=== PATIENT | male | born 1955 | race Caucasian/White ===

== ENCOUNTER 2016-07-25 07:58 | Outpatient (CLI) | END 2016-07-25 07:59 | disposition home or self-care (01) | LOC: LAB 07:58 | PROVIDERS: ATTEND Internal Medicine Gastroenterology | DX: B18.2 Chronic viral hepatitis C (principal) | CPT/HCPCS: 36415; 87522 ==

== ENCOUNTER 2016-10-31 07:35 | Outpatient (CLI) ==
[2016-10-31 08:39] LABS: BASOPHILS % (AUTO) 0.1 % (0.0-3.0); HEMATOCRIT 47.7 % (42.0-52.0); HEMOGLOBIN 17.2 g/dl (14.0-18.0); IMMATURE GRANULOCYTE % (AUTO) 0.7 % (0.0-5.0); LYMPHOCYTES # (AUTO) 1.3 K/uL (0.60-3.4); MEAN CORPUSCULAR HGB CONC 36.1 (31.8-35.4); MEAN CORPUSCULAR VOLUME 88.8 fl (80.0-94.0); MONOCYTES # (AUTO) 1.2 K/uL (0.4-2.0); MONOCYTES % (AUTO) 15.1 (0-10); NEUTROPHILS # (AUTO) 5.2 K/ul (2.0-6.9); NEUTROPHILS % (AUTO) 67.1; PLATELET COUNT 231 10^3/uL (140-440); RED BLOOD COUNT 5.37 10^6/ul (4.70-6.10); WHITE BLOOD COUNT 7.69 K/ul (4.2-10.2)
[2016-10-31 09:17] LABS: ALBUMIN 4.2 g/dL (3.4-5.0); ALBUMIN/GLOBULIN RATIO 0.93; ANION GAP 20.2; BILIRUBIN,TOTAL 0.6 mg/dL (0.00-1.20); BUN/CREATININE RATIO 4.7; CALCIUM 9.8 mg/dL (8.2-10.2); CHOL/HDL RATIO 2.4 (4.5-6.4); CREATININE 0.85 mg/dL (0.60-1.10); POTASSIUM 4.2 mmol/L (3.5-5.1); TOTAL PROTEIN 8.7 g/dL (6.4-8.2)
--- NOTE | 2016-11-01 00:49 | MRI ---
EXAM: MRI cervical spine without IV contrast. DATE: 31 October 2016. HISTORY: Cervicalgia. Chronic neck pain. TECHNIQUE: Sagittal and axial T1W and T2W sequences of the cervical spine along with sagittal IR an d coronal T2W sequences were obtained using 1.2 Aleyda magnet. No IV contrast. COMPARISON: MRI C-spine 18 October 2015. FINDINGS: There is no cervical scoliosis. A 1.7 mm anterior subluxation of C2 relative to C3 and 1 mm anterior subluxation of C6 relative to C5 are observed. No other subluxation, acute fracture, os seous malignancy, or jumped facet is evident. Prominent anterior osteophytes noted at several cervic al and upper thoracic levels are similar to October 2015. Moderate C4-5, marked C5-6, mild C6-7 and mi ld C7-T1 disc space narrowing is detected. Anterior cord flattening is redemonstrated at several ce rvical levels. No cord edema, syrinx, myelomalacia, or neoplasm. Visible brainstem is unremarkable. There is no Chiari one malformation. Small number left mastoid air cells have T2W bright signal. No thyroid, submandibular, or parotid gland neoplasm is apparent. Trachea, larynx, and epiglottis are normal. No neck mass, cervical lymphadenopathy, apical lung m ass, pneumonia, or pleural effusion is demonstrated. Mild bilateral sternoclavicular joint arthritis is noted. Segmental analysis: C2-3: Minor anterior subluxation of C2 and broad posterior disc bulge cause slight anterior cord fl attening. There is minor ligamentum flavum hypertrophy. Canal is 7.7 mm AP. Mild bilateral forami nal stenoses due to uncinate hypertrophy, moderate right facet arthropathy, and mild left facet arth ropathy. C3-4: Broad posterior disc bulge with superimposed midline disc protrusion (2.3 mm AP x 5.5 mm otero sverse) indents the anterior midline cord. Canal is 7.4 mm AP. Minor right and moderate left pete inal stenoses are due to uncinate hypertrophy and mild left facet arthropathy. C4-5: Broad posterior disc/osteophyte complex (3.9 mm AP) flattens the cord anteriorly. There is m ild ligamentum flavum hypertrophy. Canal is 6 mm AP. Moderate right and marked left foraminal sten oses are due to uncinate hypertrophy and mild bilateral facet arthropathy. C5-6: Minimal anterior subluxation of C6 and broad posterior disc/osteophyte complex (3.9 mm AP) ca use anterior cord flattening. There is minor ligamentum flavum hypertrophy. Canal is 6.3 mm AP. M arked bilateral foraminal stenoses are due to uncinate hypertrophy and minor facet disease. C6-7: Broad posterior disc/osteophyte complex (3 mm AP) does not contact the cord. Canal is 8.3 mm AP. Moderate to marked bilateral foraminal stenoses are due to uncinate hypertrophy, mild right fa cet arthropathy, and minor left facet disease. C7-T1: Broad posterior disc/osteophyte complex (2.3 mm AP) does not contact the cord. Canal is 9.7 mm AP. Mild right and moderate left foraminal stenoses are due to uncinate hypertrophy and mild fa cet disease. T1-2: Broad posterior disc/osteophyte complex (3.7 mm AP) does not contact the cord at rest. Canal is 9.5 mm AP. Moderate to marked bilateral foraminal stenoses are due to uncinate hypertrophy. T2-3: Broad posterior disc/osteophyte complex (4 mm AP) touches the cord anteriorly. Canal is 8.9 mm AP. Mild bilateral foraminal stenoses are due to disc bulge and minor facet disease. IMPRESSIONS: 1. C-spine moderate spondylosis, mild facet arthropathy, minor subluxations, and multilevel DDD - - similar to October 2015. 2. Multilevel central canal stenoses (C2-3: Moderate. C3-4: Moderate. C4-5: Marked. C5-6: Marked . C6-7: Mild. C7-T1: Mild. T1-2: Mild. T2-3: Mild). 3. Multilevel cervical cord flattening. No syrinx or myelomalacia. 4. Multilevel high-grade foraminal stenosis as described. 5. Mild left mastoid air cell disease.
== END 2016-10-31 07:36 | disposition home or self-care (01) ==
LOC: RAD 07:35
PROVIDERS: ATTEND Nurse Practitioner Family
DX: M54.2 Cervicalgia (principal); M54.9 Dorsalgia, unspecified; G89.29 Other chronic pain; I10 Essential (primary) hypertension; B19.20 Unspecified viral hepatitis C without hepatic coma; Z12.5 Encounter for screening for malignant neoplasm of prostate
CPT/HCPCS: 36415; 80053; 80061; 84443; 85025

== ENCOUNTER 2017-10-22 08:58 | Outpatient (CLI) | payer OTHER | END 2017-10-22 08:59 | disposition home or self-care (01) | LOC: RHC-LAB 08:58 | PROVIDERS: ATTEND Nurse Practitioner Family | DX: Z51.81 Encounter for therapeutic drug level monitoring (principal); Z79.891 Long term (current) use of opiate analgesic; F19.20 Other psychoactive substance dependence, uncomplicated; I10 Essential (primary) hypertension; Z12.5 Encounter for screening for malignant neoplasm of prostate | CPT/HCPCS: 36415; 80053; 80061; 82248; 84100; 84443; 85025 ==

== ENCOUNTER 2018-04-29 08:12 | Outpatient (CLI) | payer OTHER ==
--- NOTE | 2018-04-29 09:10 | CT ---
EXAM: CT of the head without contrast History: Headache. Technique: Multiplanar CT images through the head were obtained without the administration of IV con trast Findings: Mucosal thickening and air-fluid levels seen within the right maxillary sinus. Mastoid ai r cells are clear in general. No acute calvarial abnormalities. Intracranially the ventricular and cisternal spaces are normal in size, shape and configuration for a patient of this age. No dominant mass or midline shift. No hydrocephalous. No acute intracranial hemorrhage or abnormal extraaxial fluid collections. Impression: 1. No acute intracranial process. 2. Right maxillary sinusitis
--- NOTE | 2018-04-29 09:14 | CT ---
EXAM: CT of the chest without contrast History: Chest pain, tobacco use Comparison: None available. Technique: Multiplanar CT images through the thorax were obtained without the administration of IV c ontrast Findings: Heart size is normal. Coronary calcifications. No pericardial effusion. No thoracic aor tic aneurysm. No axillary lymphadenopathy. No pathologically enlarged mediastinal lymph nodes. Hailey luation for hilar lymph nodes is limited due to lack of contrast administration but no bulky hilar ad enopathy is seen. There is scarring of the left costophrenic angle with areas of subsegmental atelec tasis. No consolidated pneumonia. No pleural fluid and no pneumothorax. No suspicious lung masses or lung nodules. Mild emphysema. Within the visualized upper abdomen, status post cholecystectomy. No acute osseous abnormalities. De generative disc disease of the thoracic spine Impression: 1. No acute intrathoracic process. 2. Coronary artery disease. 3. Mild emphysema. 4. Scarring at the left costophrenic angle
[2018-04-29] MEDS ORDERED: ALBUTEROL 0.083% NEB NEB STA (12:40)
== END 2018-04-29 08:13 | disposition home or self-care (01) ==
LOC: RAD 08:12
PROVIDERS: ATTEND Nurse Practitioner Family
DX: R06.02 Shortness of breath (principal); Z72.0 Tobacco use; R51 Headache

== ENCOUNTER 2018-05-06 05:59 | Outpatient (CLI) ==
--- NOTE | 2018-05-06 09:20 | STRESSECHO ---
Date of Test: 05/06/18 Ordering Physician: PHYLLIS ONEAL APRN Occupation : DISABLED Reason for Exam: CAD, SOB, HTN, SMOKER Smoking History: QUIT 1 WEEK AGO Height : 72" Weight: 230 LBS Current Medications: PROAIR, LISINOPRIL, PROTONIX, AMBIEN, ASA, FLEXERIL Target Heart Rate: 135/159 Resting EKG: SINUS RHYTHM/ NO ACUTE CHANGES S-T SEGMENT STAGE MPH/GRADE HEART RATE BPM BLOOD PRESSURE MMHG RHYTHM +/- ELEVATION DEPRESSION SYMPTOMS AT REST 75 BPM 142/82 MMHG SR X NONE 1 1.7/10% 112 BPM 160/98 MMHG SR X NONE 2 2.5/12% 3 3.4/14% 4 4.2/16% 5 5.0/18% Immediately After 135 BPM SR X SOB Minutes Post Exercise 5:00 80 BPM 160/70 MMHG SR X NONE Minutes Post Exercise DURATION OF EXERCISE: 5:00 MAXIMUM HEART RATE REACHED: 135 BPM REASON FOR TERMINATION: SOB 94% OXYGEN SATURATION WITH EXERCISE ON ROOM AIR METS 7.0 INTERPRETATION: 1. NO EVIDENCE OF ISCHEMIA BY ST-T WAVE 2. NO CHEST PAIN OR DISCOMFORT 3. BLOOD PRESSURE RESPONSE: HYPERTENSION WITH EXERCISE 4. NO ARRHYTHMIA NORMAL LEFT VENTRICULAR CONTRACTILITY--RESTING AND POST EXERCISE MTDD
--- NOTE | 2018-05-06 09:22 | ECHOSTRESS ---
Date of Exam: 05/06/18 Ordering Physician: PHYLLIS ONEAL APRN, [facility] Reason for Echo: CAD, SOB, STRESS TEST--NO ISCHEMIA M-Mode Normal Adult Results LV Dimensions Normal Adult Results AoV Opening excursions >1.6 LVEDD-base- 3.5-5.8 Ao root dimensions 2.0-3.7 LVESD-base- 3.1-4.6 L. Atrium dimensions 1.9-3.8 Post. Wall thickness 0.8-1.1 IV septum (thickness) 0.7-1.2 Post. Wall excursion 0.72-1.3 Septal motion Systolic motion R. Ventricular cavity 1.5-2.0 LVEF 60% Paradoxical septal wall motion 2-D: NORMAL LEFT VENTRICULAR CONTRACTILITY--RESTING AND POST EXERCISE M-MODE: MV: AV: TV: PV: CHAMBER SIZE: WALL MOTION: NORMAL LEFT VENTRICULAR CONTRACTILITY--RESTING AND POST EXERCISE PERICARDIUM: INTERPRETATION: 1. NORMAL LEFT VENTRICULAR CONTRACTILITY--RESTING AND POST EXERCISE MTDD
== END 2018-05-06 06:00 | disposition home or self-care (01) ==
LOC: CAR 05:59
PROVIDERS: ATTEND Nurse Practitioner Family
DX: I25.10 Atherosclerotic heart disease of native coronary artery without angina pectoris (principal); R06.02 Shortness of breath

== ENCOUNTER 2018-11-28 08:06 | Outpatient (CLI) | END 2018-11-28 08:07 | disposition home or self-care (01) | LOC: RHC-LAB 08:06 | PROVIDERS: ATTEND Nurse Practitioner Family | DX: G47.00 Insomnia, unspecified (principal); I10 Essential (primary) hypertension; Z12.5 Encounter for screening for malignant neoplasm of prostate | CPT/HCPCS: 36415; 80053; 80061; 84443; 85025 ==